=== PATIENT | female | born 1975 | race Caucasian/White ===

== ENCOUNTER 2017-06-04 07:47 | Day surgery (SDC) | payer BC ==
[2017-06-04] MEDS ORDERED: Dextrose 5%-Lactated Ringers 1,000 ML IV SCH (08:00)
[2017-06-04] MEDS ORDERED: Glycopyrrolate 0.2 MG/ML 2 ML SDV IVPUSH ONE (08:00)
[2017-06-04] MEDS ORDERED: fentaNYL 100 MCG/2 ML SDV ONE (10:10)
[2017-06-04] MEDS ORDERED: Midazolam 1 MG/ML 2 ML SDV ONE (10:10)
[2017-06-04] MEDS ORDERED: Propofol 200 MG/20 ML SDV ONE (10:10)
[2017-06-04] MEDS ORDERED: Ondansetron 4 MG/2 ML SDV ONE (10:22)
[2017-06-04 11:57] VITALS: BP 114/67
--- NOTE | 2017-06-06 18:04 | OR ---
DATE OF PROCEDURE: 06/04/2017 PREOPERATIVE DIAGNOSIS: Upper abdominal pain. POSTOPERATIVE DIAGNOSIS: Upper abdominal pain associated with normal upper GI endoscopic exam. OPERATIVE PROCEDURE: Upper GI endoscopy with biopsies of antrum for CLOtest. ANESTHESIA: IV sedation. INDICATIONS FOR PROCEDURE: This 41-year-old presenting with some ongoing upper abdominal pain. This is located in epigastrium, but also more predominantly in the left upper quadrant. The patient is status post Blanquita fundoplication previously. She does report some continued reflux which may be related to her underlying obesity. She presently is on Protonix and Carafate. Plan is to proceed with upper GI endoscopy with biopsies as indicated. Potential risks including bleeding and perforation were discussed and the patient wishes to proceed. DETAILS OF PROCEDURE: The patient was taken to the operating room and placed in the left lateral decubitus position. IV sedation was administered after which the upper GI endoscope was passed orally through the length of the esophagus and into the stomach with retroflexion view of the fundus, thereafter through the pyloric channel and into the junction of the third and fourth portions of the duodenum. Findings overall were completely normal with the patient being status post Blanquita fundoplication. Hypopharynx, larynx, upper esophageal sphincter, and esophageal body were unremarkable. At the EG junction, there was no inflammation with the mucosa there being soft, supple, and without any evidence of inflammation. The patient had an intact Blanquita effect. The remainder of the stomach was likewise unremarkable as were the pyloric channel and duodenum. At this point, biopsy was obtained from the antrum and sent for CLOtest for the patient's H. pylori status. Minimal bleeding from the biopsy site was seen and the procedure then concluded. At this point the patient's symptoms based on the upper GI endoscopic findings. We will plan to proceed with a CT scan of the abdomen and sent for followup with Kristen Vincent CNM. Wilfrid Rojas MD /[id number]
== END 2017-06-04 12:25 | disposition home or self-care (01) ==
LOC: JP.SDS 07:47
PROVIDERS: ATTEND Surgery
DX: R10.12 Left upper quadrant pain (principal); R10.11 Right upper quadrant pain; K21.9 Gastro-esophageal reflux disease without esophagitis; E66.9 Obesity, unspecified; Z79.899 Other long term (current) drug therapy
CPT/HCPCS: 43239; 87081; J2250; J2405; J2704; J3010; J7042; J3490

== ENCOUNTER 2017-07-12 19:58 | Emergency (ER) | payer BC ==
[2017-07-12 20:36] VITALS: BP 130/79
--- NOTE | 2017-07-12 20:51 | EDM.PDOC ---
ED HPI GENERAL MEDICAL PROBLEM - General Chief Complaint: Upper Extremity Injury/Pain Stated Complaint: HURT ARM Time Seen by Provider: 07/12/17 20:45 Source of Information: Reports: Patient, RN Notes Reviewed History Limitations: Reports: No Limitations - History of Present Illness INITIAL COMMENTS - FREE TEXT/NARRATIVE: 42-year-old female presents emergency department today complaint of right arm pain, she states she injured herself earlier today when she accidentally hit her forearm on the counter edge, she is experiencing pain to the point where she has difficulty holding objects that are heavy no numbness and tingling in the fingertips Right Wrist Pain Score (Numeric/FACES): 5 - Related Data Allergies Allergy/AdvReac Type Severity Reaction Status Date / Time Sulfa (Sulfonamide Allergy Severe Swelling Verified 06/21/15 08:47 Antibiotics) codeine Allergy Intermediate Hives Verified 06/21/15 08:47 hydromorphone HCl Allergy Intermediate Vomiting Verified 06/21/15 08:47 [From Dilaudid] meperidine HCl [From Demerol] Allergy Intermediate Hives Verified 06/21/15 08:47 Penicillins Allergy Intermediate Hives Verified 06/21/15 08:47 hydrocodone Allergy Cannot Verified 06/21/15 08:47 Remember Home Meds: Home Meds Albuterol Sulfate [Albuterol Sulfate HFA] 2 puff IH Q4H PRN 06/19/15 [History] Cyanocobalamin (Vitamin B-12) [Vitamin B-12] 1,000 mcg PO BID 06/19/15 [History] EPINEPHrine [Epipen] 0.3 mg IM ASDIRECTED PRN 06/19/15 [History] Levonorgestrel [Mirena] 1 device IY DAILY 06/19/15 [History] Meclizine [Antivert] 25 mg PO Q6H PRN 06/19/15 [History] Montelukast [Singulair] 10 mg PO BEDTIME PRN 06/19/15 [History] Ondansetron [Zofran] 4 mg PO Q8H PRN 06/19/15 [History] Cyclobenzaprine [Flexeril] 10 mg PO TID PRN 03/09/16 [History] Pantoprazole Sodium [Protonix] 40 mg PO DAILY 06/04/17 [History] Ibuprofen 800 mg PO ASDIRECTED PRN 07/12/17 [History] Past Medical History HEENT History: Reports: Impaired Vision Cardiovascular History: Reports: Heart Murmur Respiratory History: Reports: Asthma Gastrointestinal History: Reports: GERD, Irritable Bowel Syndrome 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 OB/BYN History: mirena implant Musculoskeletal History: Reports: Back Pain, Chronic, Fracture Neurological History: Reports: Vertigo Hematologic History: Reports: Anemia - Infectious Disease History Infectious Disease History: Reports: Chicken Pox - Past Surgical History HEENT Surgical History: Reports: None Cardiovascular Surgical History: Reports: None Respiratory Surgical History: Reports: None GI Surgical History: Reports: Cholecystectomy, Colonoscopy, EGD, Anderson Fundoplication Other GI Surgeries/Procedures: IBS, transoral anderson, lap anderson Neurological Surgical History: Reports: Discectomy Other Neurological Surgeries/Procedures: L4-L5 Musculoskeletal Surgical History: Reports: Other (See Below) Other Musculoskeletal Surgeries/Procedures:: discectomy L4-L5 Social & Family History - Family History Family Medical History: Noncontributory - Tobacco Use Smoking Status *Q: Never Smoker Second Hand Smoke Exposure: No - Caffeine Use Caffeine Use: Reports: None - Alcohol Use Days Per Week of Alcohol Use: 0 - Recreational Drug Use Recreational Drug Use: No Review of Systems - Review of Systems Review Of Systems: See Below Constitutional: Reports: No Symptoms Musculoskeletal: Reports: Other (Right forearm pain) Skin: Reports: No Symptoms Neurological: Reports: No Symptoms ED EXAM, GENERAL - Physical Exam Exam: See Below Free Text/Narrative:: Examination of the right arm I don't appreciate any tenderness at the shoulder there is no tenderness at the elbow she is tender to palpation distal aspect of the forearm wrist has limited range of motion secondary to pain for range of motion all digits she can make the okay sign she can touch her pinky 2 and thumb together without difficulty, radial pulse is +2 Course - Vital Signs Last Recorded V/S: Last Vital Signs Temp 97.2 F 07/12/17 20:27 Pulse 68 07/12/17 20:27 Resp 16 07/12/17 20:27 BP 130/79 07/12/17 20:35 Pulse Ox 97 07/12/17 20:27 - Orders/Labs/Meds Orders: Active Orders 24 hr Category Date Time Status Wrist Comp Min 3V Rt [CR] Stat Exams 07/12/17 20:47 Taken Departure - Departure Time of Disposition: 21:30 Disposition: Home, Self-Care 01 Condition: Good Clinical Impression: Contusion of bone - Discharge Information Referrals: Genie Vincent CNM [Primary Care Provider] - Forms: ED Department Discharge Additional Instructions: Use Tylenol and Motrin as needed for pain control, Please followup with your primary care provider in 3-5 days if not better, please call return to the emergency department with worsening of symptoms. - My Orders Last 24 Hours: My Active Orders 07/12/17 20:47 Wrist Comp Min 3V Rt [CR] Stat - Assessment/Plan Last 24 Hours: My Active Orders 07/12/17 20:47 Wrist Comp Min 3V Rt [CR] Stat Plan: Assessment Acuity = acute Site and laterality = bone contusion right forearm Etiology = secondary to trauma Manifestations = none Location of injury = Home Lab values = wrist film x-ray I did review films myself I cannot appreciate any acute process, the official read from radiology is pending Plan Symptomatic care at this time recommended nonsteroidal anti-inflammatories, follow-up with primary care in 5-7 days if no improvement will contact if film is different from official read Patient was in agreement with the plan all questions were answered, they were instructed to return to the emergency department or call for worsening symptoms. This note was dictated using [employer] voice recognition software please call with any questions.
--- NOTE | 2017-07-13 09:05 | CR ---
Wrist Comp Min 3V Rt FINDINGS: The carpal bones demonstrate normal alignment. There is no evidence of fracture. The distal radius and ulna are intact. The soft tissues are unremarkable. IMPRESSION: Negative exam of the wrist.
== END 2017-07-12 21:37 | disposition home or self-care (01) ==
LOC: JP.ED 19:58
DX: S50.11XA Contusion of right forearm, initial encounter (principal); K21.9 Gastro-esophageal reflux disease without esophagitis; Z88.2 Allergy status to sulfonamides; Z88.5 Allergy status to narcotic agent; Z88.0 Allergy status to penicillin; Z88.6 Allergy status to analgesic agent; Z79.899 Other long term (current) drug therapy; J45.909 Unspecified asthma, uncomplicated; X58.XXXA Exposure to other specified factors, initial encounter
CPT/HCPCS: 73110-26-RT; 73110-RT; 99284

== ENCOUNTER 2017-09-23 18:54 | Emergency (ER) | payer BC ==
[2017-09-23 19:23] VITALS: BP 149/74
--- NOTE | 2017-09-23 19:37 | EDM.PDOC ---
ED HPI GENERAL MEDICAL PROBLEM - General Chief Complaint: Lower Extremity Injury/Pain Stated Complaint: TWISTED RIGHT KNEE Time Seen by Provider: 09/23/17 19:35 Source of Information: Reports: Patient History Limitations: Reports: No Limitations - History of Present Illness INITIAL COMMENTS - FREE TEXT/NARRATIVE: prt was coming up the steps tonight with grocery bags and she slipped and went down. She twisted her rt knee but she does not think she hit directly on the knee. Onset: Today, Sudden Duration: Hour(s): Location: Reports: Lower Extremity, Right Associated Symptoms: Reports: Other (pain with flexion and extention of the knee. ) right knee Pain Score (Numeric/FACES): 6 - Related Data Allergies Allergy/AdvReac Type Severity Reaction Status Date / Time Sulfa (Sulfonamide Allergy Severe Swelling Verified 09/23/17 19:12 Antibiotics) codeine Allergy Intermediate Hives Verified 09/23/17 19:12 hydromorphone HCl Allergy Intermediate Vomiting Verified 09/23/17 19:12 [From Dilaudid] meperidine HCl [From Demerol] Allergy Intermediate Hives Verified 09/23/17 19:12 Penicillins Allergy Intermediate Hives Verified 09/23/17 19:12 hydrocodone Allergy Cannot Verified 09/23/17 19:12 Remember Home Meds: Home Meds Albuterol Sulfate [Albuterol Sulfate HFA] 2 puff IH Q4H PRN 06/19/15 [History] Cyanocobalamin (Vitamin B-12) [Vitamin B-12] 1,000 mcg PO BID 06/19/15 [History] EPINEPHrine [Epipen] 0.3 mg IM ASDIRECTED PRN 06/19/15 [History] Levonorgestrel [Mirena] 1 device IY DAILY 06/19/15 [History] Meclizine [Antivert] 25 mg PO Q6H PRN 06/19/15 [History] Montelukast [Singulair] 10 mg PO BEDTIME PRN 06/19/15 [History] Ondansetron [Zofran] 4 mg PO Q8H PRN 06/19/15 [History] Cyclobenzaprine [Flexeril] 10 mg PO TID PRN 03/09/16 [History] Pantoprazole Sodium [Protonix] 40 mg PO DAILY 06/04/17 [History] Ibuprofen 800 mg PO ASDIRECTED PRN 07/12/17 [History] Past Medical History HEENT History: Reports: Impaired Vision Cardiovascular History: Reports: Heart Murmur Respiratory History: Reports: Asthma Gastrointestinal History: Reports: GERD, Irritable Bowel Syndrome 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: , Other (See Below) Other OB/BYN History: mirena implant Musculoskeletal History: Reports: Back Pain, Chronic, Fracture Neurological History: Reports: Vertigo Hematologic History: Reports: Anemia - Infectious Disease History Infectious Disease History: Reports: Chicken Pox - Past Surgical History GI Surgical History: Reports: Cholecystectomy, Colonoscopy, EGD, Anderson Fundoplication Other GI Surgeries/Procedures: IBS, transoral anderson, lap anderson Neurological Surgical History: Reports: Discectomy Other Neurological Surgeries/Procedures: L4-L5 Social & Family History - Family History Family Medical History: Noncontributory - Tobacco Use Smoking Status *Q: Never Smoker Second Hand Smoke Exposure: No - Caffeine Use Caffeine Use: Reports: None - Alcohol Use Days Per Week of Alcohol Use: 0 - Recreational Drug Use Recreational Drug Use: No Review of Systems - Review of Systems Review Of Systems: See Below Constitutional: Reports: No Symptoms Eyes: Reports: No Symptoms Ears: Reports: No Symptoms Nose: Reports: No Symptoms Mouth/Throat: Reports: No Symptoms Respiratory: Reports: No Symptoms Cardiovascular: Reports: No Symptoms GI/Abdominal: Reports: No Symptoms Genitourinary: Reports: No Symptoms Musculoskeletal: Reports: Other (pain in the rt knee after a fall. ) Skin: Reports: No Symptoms ED EXAM, GENERAL - Physical Exam Exam: See Below Free Text/Narrative:: pt arrived with pain in hwer rt knee. She was going up the steps and lost her balance. She fell and twisted her rt knee She did not land directly on the knee. She has pain with flexion and extention. Exam Limited By: No Limitations General Appearance: Alert, Anxious, Moderate Distress Ears: Normal TMs Nose: Normal Inspection Throat/Mouth: Normal Inspection Head: Atraumatic Neck: Normal Inspection Respiratory/Chest: No Respiratory Distress Extremities: Other ( Rt knee is tender under the knee cap area. She does not have alot of swelling or discoloration of the knee. She has some pain with ambulation but it is not severe. ) Neurological: Alert, Oriented Course - Vital Signs Last Recorded V/S: Last Vital Signs Temp 36.2 C 09/23/17 19:23 Pulse 88 09/23/17 19:23 Resp 18 09/23/17 19:23 BP 149/74 H 09/23/17 19:23 Pulse Ox 97 09/23/17 19:23 - Orders/Labs/Meds Orders: Active Orders 24 hr Category Date Time Status Knee Min 4V Rt [CR] Stat Exams 09/23/17 19:33 Taken - Re-Assessments/Exams Free Text/Narrative Re-Assessment/Exam: 09/23/17 20:16 xrays were obtained which did not show a plateau fracture. No other fracturwes were noted. A knee imoblizer was placed on the pt. Departure - Departure Time of Disposition: 20:17 Disposition: Home, Self-Care 01 Condition: Fair Clinical Impression: Sprain of right knee - Discharge Information Instructions: Knee Sprain, [id number] Referrals: Genie Vincent CNM [Primary Care Provider] - Forms: ED Department Discharge Care Plan Goals: knee imoblizer, cool pack, minimal wt bearing. . Motrin 600mg tid q6h prn for pain. If knee is not improving Ortho consult in 1 week for further evaluation. , pT WILL USE CRUTCHES FOR THE NEXT WEEK, - My Orders Last 24 Hours: My Active Orders 09/23/17 19:33 Knee Min 4V Rt [CR] Stat - Assessment/Plan Last 24 Hours: My Active Orders 09/23/17 19:33 Knee Min 4V Rt [CR] Stat
--- NOTE | 2017-09-24 08:47 | CR ---
Right knee There is normal alignment. There is no evidence of fracture. There is no joint effusion. Impression: 1. No acute posttraumatic findings.
== END 2017-09-23 20:27 | disposition home or self-care (01) ==
LOC: JP.ED 18:54
DX: S83.91XA Sprain of unspecified site of right knee, initial encounter (principal); J45.909 Unspecified asthma, uncomplicated; K21.9 Gastro-esophageal reflux disease without esophagitis; Z79.899 Other long term (current) drug therapy; Z88.0 Allergy status to penicillin; Z88.2 Allergy status to sulfonamides; Z88.5 Allergy status to narcotic agent; Z88.6 Allergy status to analgesic agent; W01.0XXA Fall on same level from slipping, tripping and stumbling without subsequent striking against object, initial encounter; X50.1XXA Overexertion from prolonged static or awkward postures, initial encounter
CPT/HCPCS: 73564-26-RT; 73564-RT; 99284

== ENCOUNTER 2021-09-04 06:45 | Day surgery (SDC) | payer OTHER, BC ==
[2021-09-04] MEDS ORDERED: fentaNYL 100 MCG/2 ML SDV ONE (07:26)
[2021-09-04] MEDS ORDERED: Ondansetron 4 MG/2 ML SDV ONE (07:26)
[2021-09-04] MEDS ORDERED: Propofol 200 MG/20 ML SDV ONE (07:26)
[2021-09-04] MEDS ORDERED: Midazolam 1 MG/ML 2 ML SDV ONE (07:26)
[2021-09-04 07:41] LABS: CORONAVIRUS COVID-19 NAA NEGATIVE (NEGATIVE)
[2021-09-04] MEDS ORDERED: Dextrose 5%-Lactated Ringers 1,000 ML IV SCH (07:45)
[2021-09-04] MEDS ORDERED: Glycopyrrolate 0.2 MG/ML 2 ML SDV IVPUSH ONE (08:00)
[2021-09-04 10:35] VITALS: BP 125/73; PULSE 80
--- NOTE | 2021-09-12 16:54 | OR ---
DATE OF PROCEDURE: 09/04/2021 SURGEON: Wilfrid Rojas MD PREOPERATIVE DIAGNOSIS: Recurrent gastroesophageal reflux disease, status post Blanquita fundoplication. POSTOPERATIVE DIAGNOSES: 1. Recurrent gastroesophageal reflux disease with intact Blanquita fundoplication and inflammation of esophagogastric junction. 2. Mild antral gastritis. OPERATIVE PROCEDURE: Esophagogastroduodenoscopy with: 1. Biopsy of esophagogastric junction with histologic examination. 2. Biopsy of antrum for CLOtest. ANESTHESIA: IV sedation. INDICATION FOR PROCEDURE: This is a 46-year-old status post previous Blanquita fundoplication. She is noted to have significant weight gain and presently has a BMI of 47.7. With this, she has had recurrence of reflux disease. Plan is to proceed with upper GI endoscopy for further evaluation. Potential risks of procedure including bleeding and perforation were discussed and the patient wishes to proceed. DETAILS OF PROCEDURE: The patient was taken to the operating room and placed in a left lateral decubitus position. IV sedation was administered, after which, the upper GI endoscope was passed orally through the length of the esophagus and into stomach with retroflexion view of the fundus, and thereafter through pyloric channel into the junction of the third and fourth portions of the duodenum. Findings included an entirely intact-appearing Blanquita fundoplication and there was very minimal gross inflammation of the esophagogastric junction. Scope was easily passed with retroflexion of the stomach and also confirmed an intact Blanquita fundoplication. The patient had small amount of retained bile, but no major signs of gastric motility problems in terms of bezoar retained fluid. There was some patchy redness of the antrum, otherwise, pyloric channel and proximal duodenum were unremarkable. Biopsy obtained from the antrum, sent for CLOtest for H pylori. No bleeding from biopsy site was seen. Multiple biopsies were taken from the esophagogastric junction. Likewise, no bleeding was seen and the patient was taken to the recovery room in satisfactory condition. At this point, the patient complicating her reflux situation in terms of heightened abdominal pressure and this evolving with increasing weight and it is likely overcoming antireflux effects of the Blanquita fundoplication. At this point, the next appropriate step would likely be a gastric bypass which would control her weight issues as well as associated comorbidities as well as control her reflux. We will see the patient back next Wednesday to discuss further options. Wilfrid Rojas MD /[id number]
== END 2021-09-04 10:39 | disposition home or self-care (01) ==
LOC: JP.SDS 06:45
PROVIDERS: ATTEND Surgery
DX: K31.89 Other diseases of stomach and duodenum (principal); K21.9 Gastro-esophageal reflux disease without esophagitis; K29.60 Other gastritis without bleeding; E66.01 Morbid (severe) obesity due to excess calories; Z68.42 Body mass index [BMI] 45.0-49.9, adult; Z98.84 Bariatric surgery status; Z01.812 Encounter for preprocedural laboratory examination; Z20.822 Contact with and (suspected) exposure to COVID-19
CPT/HCPCS: 0241U; 81025; 87081; 88305; J2250; J2405; J2704; J3010; J7121